=== PATIENT | female | born 1940 ===

== ENCOUNTER 2017-11-19 07:27 | Outpatient (CLI) | payer OTHER ==
[~2017-11-19] VITALS: Ht 165.1 cm; Wt 72.6 kg
== END 2017-11-19 07:45 | disposition home or self-care (01) ==
LOC: OFIC 805 07:27
DX: R09.81 Nasal congestion (principal); J30.89 Other allergic rhinitis

== ENCOUNTER 2017-12-31 08:04 | Outpatient (CLI) | payer OTHER ==
[~2017-12-31] VITALS: Ht 152.4 cm; Wt 72.6 kg
== END 2017-12-31 08:20 | disposition home or self-care (01) ==
LOC: OFIC 805 08:04
DX: R09.81 Nasal congestion (principal); J30.89 Other allergic rhinitis; K21.9 Gastro-esophageal reflux disease without esophagitis; J39.2 Other diseases of pharynx

== ENCOUNTER 2018-03-03 08:21 | Outpatient (CLI) | payer OTHER ==
[~2018-03-03] VITALS: Ht 152.4 cm; Wt 72.6 kg
== END 2018-03-03 08:40 | disposition home or self-care (01) ==
LOC: OFIC 805 08:21
DX: K21.9 Gastro-esophageal reflux disease without esophagitis (principal); J30.89 Other allergic rhinitis; R09.81 Nasal congestion; F45.8 Other somatoform disorders